=== PATIENT | male | born 1985 | race Hispanic/Latino ===

== ENCOUNTER 2023-02-19 20:19 | Emergency (ER) | payer OTHER ==
[~2023-02-19] VITALS: Ht 170.2 cm; Wt 78.0 kg
[2023-02-19] MEDS ORDERED: LORAZEPAM 2 MG/ML 1 ML VIAL IM ONE (21:30)
[2023-02-19] MEDS ORDERED: KETAMINE 50MG/ML SYRINGE 50 MG/ML DISP.SYRIN IM ONE ×2 (21:30→22:00)
[2023-02-19 22:42] VITALS: BP 132/71
== END 2023-02-19 23:20 | disposition home or self-care (01) ==
LOC: EDH 20:19
DX: M25.571 Pain in right ankle and joints of right foot (principal); Z02.89 Encounter for other administrative examinations
CPT/HCPCS: 99284; 71045; 72040; 96372 ×2; J2060; J3490